=== PATIENT | male | born 1965 | race Caucasian/White ===

== ENCOUNTER 2016-12-12 18:34 | Emergency (ER) | payer SELFPAY ==
[2016-12-12] MEDS ORDERED: KETOROLAC TROMETHAMINE 60 MG/2 ML VIAL IM ONE (20:03)
[2016-12-12] MEDS ORDERED: NALBUPHINE HCL 10 MG/1 ML IM ONE (20:03)
--- NOTE | 2016-12-12 20:48 | ED Physician Documentation ---
Sore Throat/Dental Pain - HISTORIAN Historian: patient - HPI Stated Complaint: left side tooth pain Chief Complaint: Dental Pain Onset: hours Context: Fractured Tooth Further Comments: yes (51 year old male patient presents with complaint of dental pain, reports he broke his bottom left molar yesterday.) - ROS CONST: no problems CVS/RESP: none GI/: denies: nausea, vomiting MS/SKIN/LYMPH: denies: muscle aches, rash, leg swelling, ankle swelling, other NEURO/PSYCH: none - PAST HX Past History: none Other History: none Allergies/Adverse Reactions: Allergies Allergy/AdvReac Type Severity Reaction Status Date / Time codeine [Codeine] Allergy Intermediate Hives Verified 12/12/16 19:03 Home Medications: Ambulatory Orders Medication Instructions Recorded Penicillin V Potassium [Pen V K] 500 mg PO QID #40 tablet 12/12/16 - SOCIAL HX Smoking History: cigarettes - FAMILY HX Family History: No - VITAL SIGNS Vital Signs: Vital Signs Temp Pulse Resp BP Pulse Ox 97.7 F 87 20 167/104 97 12/12/16 20:27 12/12/16 20:27 12/12/16 20:27 12/12/16 20:27 12/12/16 20:27 - REVIEWED ASSESSMENTS Nursing Assessment Reviewed: Yes Vitals Reviewed: Yes Progress - Progress Progress: Patient medicated for pain with nubain and toradol IM. ED Results Lab/Radiology - Orders Orders: ED Orders Category Date Time Status Ketorolac Tromethamine [Toradol] Med 12/12/16 20:03 Discontinued 60 mg IM NOW ONE Nalbuphine HCl [Nubain] Med 12/12/16 20:03 Discontinued 10 mg IM NOW ONE Dental Pain Physical Exam - EXAM General Appearance: mild distress Mouth/Throat: lips nml, pharynx nml, voice nml, no drooling, no air way problems , no thrush, membranes nml, widespread dental decay, other (#36 with caries and fracture; mild edema in gums around tooth.) Respiratory: no resp. distress, breath sounds nml CVS: reg. rate & rhythm, heart sounds nml Abdomen: soft, no organomegaly, normal bowel sounds, no abdominal bruit, no distension Extremities: non-tender, nml ROM Skin: normal color, warm/dry, NR, INT, PAL, DR Neuro/Psych: No: weakness Discharge Clincal Impression: Pain due to dental caries Prescriptions: Penicillin V Potassium [Pen V K] 500 mg PO QID #40 tablet Referrals: Primary Doctor,No [Primary Care Provider] - 2 Days Additional Instructions: Ibuprofen 800mg every 8 hours x 3 days Tylenol 650-1000mg every 4 hours as needed for pain, limit your dose to 4G in 24 hours. Over the counter [employer] - follow package directions. 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 See your dentist as soon as possible Home Medications: Ambulatory Orders Penicillin V Potassium [Pen V K] 500 mg PO QID #40 tablet 12/12/16 Condition: Stable Disposition: 01 HOME, SELF-CARE Decision to Admit: NO Decision Time: 20:20
[2016-12-12 21:17] VITALS: BP 167/104
== END 2016-12-12 20:30 | disposition home or self-care (01) ==
LOC: ED 18:34
DX: K02.9 Dental caries, unspecified (principal)
CPT/HCPCS: J1885; J2300; 96372; 99283